=== PATIENT | male | born 1985 | race Caucasian/White ===

== ENCOUNTER 2016-10-02 15:21 | Emergency (ER) | payer SELFPAY ==
[2016-10-02 16:03] LABS: URINE BILIRUBIN 1+ (NEGATIVE); URINE BLOOD 4+ (NEGATIVE); URINE GLUCOSE (UA) NEGATIVE (NEGATIVE); URINE LEUKOCYTE ESTERASE TRACE (NEGATIVE); URINE NITRITE NEGATIVE (NEGATIVE); URINE PROTEIN 2+ (NEGATIVE)
[2016-10-02 16:09] LABS: URINE APPEARANCE CLEAR; URINE COLOR BROWN; URINE UROBILINOGEN 4 mg/dL (0-1 mg/dl)
[2016-10-02 16:20] LABS: URINE BACTERIA 2+; URINE MUCUS 2+
[2016-10-02] MEDS ORDERED: SODIUM CHLORIDE 0.9% 1,000 ML ONE (16:40)
[2016-10-02] MEDS ORDERED: ONDANSETRON 4 MG/2ML 2 ML VIAL ONE (16:40)
[2016-10-02] MEDS ORDERED: PANTOPRAZOLE SODIUM 40 MG VIAL IV ONE (16:41)
[2016-10-02 16:46] LABS: ABSOLUTE NEUTROPHIL COUNT 1.9 K/mm3 (1.8-7.7); BASO # 0.1 K/mm3 (0.0-0.2); BASO % 2.1 % (0.2-1.0); EOS # 0.1 (0.0-0.5); EOS % 2.4 % (0.9-2.9); HEMATOCRIT 35.2 % (32.0-52.0); HEMOGLOBIN 12.2 gm/l (14.0-18.0); IMM NEUT% 0.9 % (0-1); LYMPH # 0.8 (1.0-4.8); LYMPH % 23.5 % (15-45); MEAN CELL VOLUME 101.7 fl (80.0-94.0); MEAN CORPUSCULAR HEMOGLOBIN 35.3 pg (27.0-31.0); MEAN CORPUSCULAR HGB CONC 34.7 g/dl (33.0-37.0); MEAN PLATELET VOLUME 10.7 fl (7.4-10.4); MONO # 0.4 (0.0-0.8); MONO % 11.6 % (4-12); NEUT % 59.5 % (43-75); PLATELET COUNT 43 K/mm3 (130-400); RED CELL DISTRIBUTION WIDTH 14.2 % (11.5-14.5)
[2016-10-02] MEDS ORDERED: MORPHINE SULFATE 4 MG/ML SYRINGE ONE (16:46)
[2016-10-02 16:57] LABS: INR 1.05
[2016-10-02 17:02] LABS: ALB/GLOB RATIO 1.3 (>1.0); ALBUMIN 4.5 gm/dL (3.5-5.7); CALCIUM 9.1 mg/dL (8.6-10.3); MAGNESIUM 1.7 mg/dL (1.9-2.7)
[2016-10-02 17:15] LABS: PLATELET ESTIMATE NO PLT CLUMPS SEEN (NORMAL)
--- NOTE | 2016-10-02 17:39 | CT ---
ABD/PELVIS W/O CON: 10/02/2016 4:36 PM INDICATION: Abdominal pain for one month. COMPARISON: None. TECHNIQUE: Contiguous 3 mm transaxial images from a [employer] [address] scanner were obtained from the lung bases through the pubic symphysis without oral or intravenous contrast. Multiplanar images were created at the CT scanner. CT DI: 6.8 DLP: 712.1 FINDINGS: Lung base: No abnormality is seen at the lung bases. There is no pericardial effusion. This examination is limited for the evaluation of solid organs and vascular structures due to the lack of intravenous contrast which is standard for urinary calculus assessment CT. Liver: Severe diffuse fatty infiltration to the liver is present with focal sparing along the gallbladder fossa. No focal lesion is noted.. Gallbladder: Normal Spleen: Normal. Pancreas: Normal. Adrenal Glands: Normal. Right kidney & ureter: - Calculi - No . - Ureter Calculi - No. - Obstruction / hydronephrosis - No Left kidney & ureter: - Calculi - No . - Ureter Calculi- No . - Obstruction / hydronephrosis - No The unopacified stomach and bowel is abnormal.. Intramural fat is noted throughout much of the colon. Findings can be seen in patients with inflammatory bowel disease. Much of the large bowel is decompressed limiting assessment. Appendix is not visualized though secondary signs of appendicitis are not seen. Multiple small nodes are present throughout the retroperitoneum superiorly. None of these nodes are enlarged by size criteria, however. Additionally there is some amount of inflammatory change within the retroperitoneum and central mesentery. Findings may relate to a maggie mesentery pattern. No free fluid in the abdomen or pelvis. Tiny fat-containing umbilical hernia. Urinary bladder: -Bladder Calculi- No . - Bladder is decompressed. - Wall is thin. Bone windows- No lytic or sclerotic lesions. Spine maintains anatomic alignment. IMPRESSION: 1. No urinary tract calculi. 2. Non-contrast evaluation of the abdomen and pelvis is otherwise notable for intramural fat throughout the colon which can be seen in inflammatory bowel disease. Additionally there is extensive fatty infiltration of the liver without focal lesion. Maggie mesentery pattern can be seen with either of these 2 diseases, as noted above. 3. Other incidental findings as above. Findings were called to Dr. Lozano at approximately 1732 hours on 10/02/2016.
[2016-10-02] MEDS ORDERED: CEFTRIAXONE 1 GRAM DUPLEX 50 ML IV ONE (18:17)
== END 2016-10-02 18:40 | disposition home or self-care (01) ==
LOC: ED 15:21
DX: K29.20 Alcoholic gastritis without bleeding (principal); R31.9 Hematuria, unspecified; F90.9 Attention-deficit hyperactivity disorder, unspecified type; F17.210 Nicotine dependence, cigarettes, uncomplicated
CPT/HCPCS: 83690; 85025; 82553; 87086; 80053; 80307; 83735; 85610; 81001; 74176; 96375 ×4; 99284 ×2; 96361; 96365; J2270; C9113; J2405; J7030; J0696